=== PATIENT | male | born 1950 | race Caucasian/White ===

== ENCOUNTER 2022-05-28 17:36 | Emergency (ER) | payer MEDICARE ==
[~2022-05-28] VITALS: Ht 182.9 cm; Wt 99.8 kg
[~2022-05-28 17:36] MED LIST: ALBUTEROL2.5 MG/0.5 INH; ASPIR 8181 MG PO; CINNAMON500 MG PO; FENOFIBRATE160 MG PO; FISH OIL 1,0001 EAC2 PO; GLIMEPIRIDE2 MG PO; MULTI-VITAMIN1 EACH PO; OMEPRAZOLE40 MG PO; PROAIR HFA INH8.5 GM INH; SIMVASTATIN20 MG PO; TIZANIDINE HCL4 MG PO; TYLENOL PM PO; TYLENOL WITH C1 EACH PO
[2022-05-28 18:03] LABS: BASOPHILS % 0.7 % (0.0-1.0); EOSINOPHILS # (AUTO) 0.3 (0.0-0.4); EOSINOPHILS % 6.3 % (0.0-6.0); HEMATOCRIT 42.5 % (38.2-49.6); HEMOGLOBIN 13.8 g/dL (14.0-18.0); LYMPHOCYTES # (AUTO) 1.7 (1.0-3.2); LYMPHOCYTES % 38.6 % (18.0-39.1); MEAN CORPUSCULAR HEMOGLOBIN 32.4 pg (28-32); MEAN CORPUSCULAR HGB CONC 32.5 g/dL (31-35); MEAN CORPUSCULAR VOLUME 99.8 fL (81-99); MONOCYTES # (AUTO) 0.5 (0.2-0.8); MONOCYTES % 10.9 % (4.4-11.3); NEUTROPHILS # (AUTO) 1.9 (2.1-6.9); NEUTROPHILS % 43.3 % (38.7-80.0); PLATELET COUNT 161 x10e3/uL (140-360); RED BLOOD COUNT 4.26 x10e6/uL (4.3-5.7); RED CELL DISTRIBUTION WIDTH 12.8 % (11.7-14.4)
[2022-05-28 18:21] LABS: ALBUMIN 4.1 g/dL (3.5-5.0); ALBUMIN/GLOBULIN RATIO 1.1 (0.8-2.0); ANION GAP 16.2 mmol/L (8-16); CALCIUM 9.7 mg/dL (8.4-10.2); CREATININE, SERUM 0.9 mg/dL (0.72-1.25); POTASSIUM 4.2 mmol/L (3.5-5.1)
[2022-05-28] MEDS ORDERED: IOPAMIDOL 370 MG/ML 100 ML INFUS..BTL INJ ONE (18:34)
[2022-05-28 18:37] LABS: CLARITY,URINE CLEAR (CLEAR); COLOR,URINE YELLOW (YELLOW); KETONES,URINE NEGATIVE (NEGATIVE); LEUKOCYTE ESTERASE ,URINE NEGATIVE (NEGATIVE); NITRITE,URINE NEGATIVE (NEGATIVE); PROTEIN,URINE DIPSTICK NEGATIVE (NEGATIVE); URINE UROBILINOGEN 0.2 mg/dL (0.2 - 1)
[2022-05-28 18:56] LABS: BACTERIA,URINE RARE /HPF; EPITHELIAL CELLS,URINE RARE /LPF; MUCUS,URINE FEW (RARE); WBC,URINE (MAN) 0-5 /HPF (0-5)
[2022-05-28] MEDS ORDERED: ULTRAM 50MG50 MG PO (20:03)
== END 2022-05-28 20:33 | disposition home or self-care (01) ==
LOC: ER 17:41
DX: R10.31 Right lower quadrant pain (principal); E11.65 Type 2 diabetes mellitus with hyperglycemia; Z96.651 Presence of right artificial knee joint
CPT/HCPCS: 36415; 74177; 80053; 81001; 83690; 85025; 93005; 99284; Q9967